=== PATIENT | female | born 1950 | race African-American/Black ===

== ENCOUNTER 2017-04-08 09:35 | Day surgery (SDC) | payer OTHER ==
--- NOTE | 2017-04-07 20:29 | PREOPHP ---
DATE OF ADMISSION: 04/08/2017 REASON FOR ADMISSION: A 66-year-old patient is going to be admitted for diagnostic arthroscopy of r ight knee, partial meniscectomy, total synovectomy, plica release, application of Owen dressing. HISTORY OF PRESENT ILLNESS: This 66-year-old patient has been experiencing knee pain for quite a wh ile. Conservative treatment resulted in limited benefit to the patient. The patient has requested surgical intervention. ALLERGIES: HISTORY OF ALLERGY TO ASPIRIN. MEDICATIONS: 1. Soma. 2. Trazodone. 3. Amlodipine. 4. Baclofen. 5. Nortriptyline. 6. Hydrocodone. 7. Benazepril. 8. ____. SOCIAL HISTORY: No history of smoking. No history of drinking. PHYSICAL EXAMINATION: VITAL SIGNS: Height of 5 feet 2 inches, weighing 174 pounds. SKIN: Within normal limits. HEENT: PERRLA. ____ Normocephalic. NECK: Trachea midline. Bilateral symmetrical carotid pulses. No mass, no bruit, no lymphadenopath y. CARDIOVASCULAR: Normal sinus rhythm. S1, S2 normal. No murmur. No JVD. No peripheral edema. LUNGS: Clear. ABDOMEN: Soft, scaphoid. No organomegaly. No mass. Bowel sounds present. GENITOURINARY AND RECTAL: Not done, not pertinent to this admission. MUSCULOSKELETAL: Head and neck unremarkable. Upper extremities normal with normal neurovascular ex amination. Spine clear. Both lower extremities symmetrical and normal except for knees. Range of motion is from 0 to 120 degrees. There is tenderness in the posteromedial joint line. There is pos itive Natasha test. There is no AP instability. There is synovitis being present. IMAGING: MRI report of the right knee indicates medial meniscus tear, lateral meniscus tear. There is full-thickness chondral loss and subchondral cyst formation in the medial compartment. Moderate chronic partial MCL tear. Moderate joint effusion. DIAGNOSES: 1. Internal derangement of right knee. 2. Torn meniscus. 3. Synovitis. 4. Plica syndrome. PLAN: Treatment plan, alternatives, risks, and benefits discussed. The patient understands possibi lity of complications from surgery such as infection, bleeding, nerve damage, vascular damage, possi bility of deep venous thrombosis, pulmonary embolism, hypersensitivity, and even . Raymond result may not be obtained depending on actual findings and unknown factor or factors. Formal H and P is supposed to be done by PCP. Dictated By: CIRAA OCAMPO/BERNABE Conf#: [id number] DID#: [id number]
[~2017-04-08] VITALS: Ht 157.5 cm; Wt 72.0 kg
[2017-04-08] VITALS (11 sets, daily range): BP systolic 139–179; BP diastolic 58–91; PULSE 62–96; RESP 13–20; Ht 157.5 cm; Wt 72.0 kg
[~2017-04-08 09:35] MED LIST: AMLO-147 PO; BACL10TA PO; BENA40TA54 PO; CEFAZOLIN 1 GM/50 ML (PMX) 50 ML IVPB ONE; HYDR-3612 PO; NORTRIPTYLINE; TRAZ50TA18 PO
[2017-04-08] MEDS ORDERED: CARI350T29 PO (10:07)
[2017-04-08] MEDS ORDERED: HYDR-902 PO (10:08)
[2017-04-08] MEDS ORDERED: NAPR-260 PO (10:08)
[2017-04-08] MEDS ORDERED: NORT25CA PO (10:09)
[2017-04-08] MEDS ORDERED: LORA10CA PO (10:09)
[2017-04-08] MEDS ORDERED: FLUT16SP17 NASAL (10:11)
[2017-04-08] MEDS ORDERED: ALBU18HF INHALATION (10:11)
[2017-04-08] MEDS ORDERED: morphine SULFATE/PF (10 MG/10 ML) INJ ONE (11:14)
[2017-04-08] MEDS ORDERED: EPINEPHrine 1 MG/ML 30 ML INJ ONE ×2 (11:14→12:19)
[2017-04-08] MEDS ORDERED: FENTAnyl 50 MCG/ML VIAL ONE (11:57)
[2017-04-08] MEDS ORDERED: NEOSTIGMINE 3 MG/3 ML SYRINGE ONE (12:06)
[2017-04-08] MEDS ORDERED: SUCCINYLCHOLINE CHLORIDE 100 MG/5 ML SYG IV ONE (12:06)
[2017-04-08] MEDS ORDERED: LIDOCAINE 2% (SDV) 5 ML INJ ONE (12:06)
[2017-04-08] MEDS ORDERED: CEFAZOLIN 1 GM INJ ONE (12:06)
[2017-04-08] MEDS ORDERED: GLYCOPYRROLATE 0.4 MG INJ ONE (12:06)
[2017-04-08] MEDS ORDERED: PROPOFOL 20 ML ONE (12:06)
[2017-04-08] MEDS ORDERED: ROCURONIUM 50 MG INJ ONE (12:06)
[2017-04-08] MEDS ORDERED: DIPHENHYDRAMINE 50 MG INJ IV PRN (12:30)
[2017-04-08] MEDS ORDERED: MEPERIDINE 25 MG INJ IV PRN (12:30)
[2017-04-08] MEDS ORDERED: FENTAnyl 50 MCG/ML VIAL IV PRN ×2 (12:30)
[2017-04-08] MEDS ORDERED: ONDANSETRON 4 MG INJ IV PRN (12:30)
[2017-04-08] MEDS ORDERED: METOCLOPRAMIDE 10 MG INJ IV PRN (12:30)
[2017-04-08] MEDS ORDERED: HYDROmorphONE (0.2 MG/ML) 10ML SYG IV PRN ×3 (12:30)
[2017-04-08] MEDS ORDERED: HYDROCODONE/APAP (5/325) TAB PO PRN ×2 (13:00)
[2017-04-08] MEDS ORDERED: EPINEPHrine 1 MG/ML 30 ML INJ IRR ONE (13:05)
--- NOTE | 2017-04-08 13:20 | OPR ---
DATE OF OPERATION: PREOPERATIVE DIAGNOSES: 1. Torn medial meniscus. 2. Torn lateral meniscus. 3. Synovitis. POSTOPERATIVE DIAGNOSES: 1. Torn medial meniscus. 2. Torn lateral meniscus. 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 ANESTHESIA: General. BLEEDING: Minimal. COMPLICATIONS: None. DESCRIPTION OF PROCEDURE: The patient was transferred to the operating room and placed on the table in supine position. General anesthesia was induced. Two grams of Ancef were given IV. Right knee was prepped and draped in the routine fashion. Landmarks were marked through 2 anterior portals pa rapatella, 1 medial and 1 lateral, operative arthroscopy was commenced. Examination of suprapatella r pouch indicated chronic synovitis. Medial and lateral gutter indicated chronic synovitis, absence of loose body. Patellofemoral indicated a combination of grade III and IV chondromalacia, medial c ompartment was 90% grade IV chondromalacia, and there was a flap tear of the anterior, posterior, an d central part; therefore, partial medial meniscectomy to stable margins was done. There was synovi tis anteriorly, which was also taken care of by Arthrocare Bovie with coagulation. ACL was partiall y intact and void of vascularity. Lateral compartment indicated 80% to 90% grade IV chondromalacia, and there was a flap tear of the lateral meniscus. Therefore, partial lateral meniscectomy to stab le margins was done. In suprapatellar pouch, total synovectomy was done by coagulation and all debr is was removed. Portal was closed with skin andreia and 10 mg of Duramorph mixed with 10 mL of sali ne was injected into the knee. Sterile Owen dressing was applied. Procedure was terminated. Gene ral anesthesia was stopped. Patient was taken to the recovery room in good and stable condition. Dictated By: CIARA OCAMPO/BERNABE Conf#: [id number] DID#: [id number]
== END 2017-04-08 15:25 | disposition home or self-care (01) ==
LOC: SDS 09:35
PROVIDERS: ATTEND Internal Medicine Endocrinology, Diabetes & Metabolism
DX: M23.211 Derangement of anterior horn of medial meniscus due to old tear or injury, right knee (principal); M23.221 Derangement of posterior horn of medial meniscus due to old tear or injury, right knee; M23.231 Derangement of other medial meniscus due to old tear or injury, right knee; M23.200 Derangement of unspecified lateral meniscus due to old tear or injury, right knee; M94.261 Chondromalacia, right knee; M65.9 Synovitis and tenosynovitis, unspecified; Z88.6 Allergy status to analgesic agent; I10 Essential (primary) hypertension; J45.909 Unspecified asthma, uncomplicated
CPT/HCPCS: 29880; C1713; J0171; J0690; J1170; J2274; J2710; J3010; J7999; Z7512; Z7610